=== PATIENT | female | born 1990 | race American Indian/Alaskan Native ===

== ENCOUNTER 2017-10-29 11:20 | Emergency (ER) | payer BC ==
[2017-10-29] MEDS ORDERED: Sodium Chloride 0.9% 1,000 ML IV ONE (12:59)
--- NOTE | 2017-10-29 13:16 | EDM.PDOC ---
ED HPI GENERAL MEDICAL PROBLEM - General Chief Complaint: Neuro Symptoms/Deficits Stated Complaint: syncope, hit head Time Seen by Provider: 10/29/17 11:30 Source of Information: Reports: Patient History Limitations: Reports: No Limitations - History of Present Illness INITIAL COMMENTS - FREE TEXT/NARRATIVE: Jennifer is a 27 year old female who presents to the ED with c/o a syncopal episode. She reports that she was attempting to have a bowel movement while at a gas station in [place] when she "passed out." She reports she fell and believes she hit her head. Does also c/o some right elbow pain. She reports she feels somewhat dizzy now. Denies any headache, recent illness, chest pain, shortness of breath, N/V/D, urinary symptoms. Reports her LMP was 09/25/2017 and that she has irregular cycles. Onset: Today Onset Date: 10/29/17 Onset Time: 10:30 Duration: Resolved Prior to Arrival Associated Symptoms: Reports: Syncope, Weakness. Denies: Confusion, Chest Pain , Cough, cough w sputum, Diaphoresis, Fever/Chills, Headaches, Loss of Appetite , Malaise, Nausea/Vomiting, Rash, Seizure, Shortness of Breath Head Pain Score (Numeric/FACES): 3 Left Tooth/Teeth Pain Score (Numeric/FACES): 5 - Related Data Allergies Allergy/AdvReac Type Severity Reaction Status Date / Time naproxen Allergy Dizziness Verified 10/29/17 11:32 shellfish derived Allergy Anaphylactic Verified 10/29/17 11:32 Shock pine Allergy Difficulty Uncoded 10/29/17 11:32 Breathing Home Meds: Home Meds Albuterol [Ventolin HFA] 1 puff INH Q4H PRN 10/29/17 [History] Cetirizine [ZyrTEC] 10 mg PO DAILY PRN 10/29/17 [History] EPINEPHrine [Epipen] 0.3 mg IM ASDIRECTED PRN 10/29/17 [History] Past Medical History HEENT History: Reports: Impaired Vision Respiratory History: Reports: Asthma Musculoskeletal History: Reports: Arthritis - Past Surgical History Musculoskeletal Surgical History: Reports: Arthroscopic Knee Social & Family History - Tobacco Use Smoking Status *Q: Never Smoker - Caffeine Use Caffeine Use: Reports: None - Recreational Drug Use Recreational Drug Use: No ED ROS GENERAL - Review of Systems Review Of Systems: ROS reveals no pertinent complaints other than HPI. Constitutional: Reports: No Symptoms HEENT: Reports: No Symptoms Respiratory: Reports: No Symptoms Cardiovascular: Reports: Syncope Endocrine: Reports: No Symptoms GI/Abdominal: Reports: No Symptoms : Reports: No Symptoms Musculoskeletal: Reports: No Symptoms Skin: Reports: No Symptoms ED EXAM, NEURO - Physical Exam Exam: See Below Exam Limited By: No Limitations General Appearance: Alert, WD/WN, No Apparent Distress Eye Exam: Bilateral Eye: EOMI, Normal Fundi, Normal Inspection, PERRL Ears: Normal External Exam, Normal Canal, Hearing Grossly Normal, Normal TMs Nose: Normal Inspection, Normal Mucosa, No Blood Throat/Mouth: Normal Inspection, Normal Lips, Normal Teeth, Normal Gums, Normal Oropharynx, Normal Voice, No Airway Compromise Head Exam: Atraumatic, Normocephalic Neck: Normal Inspection, Supple, Non-Tender, Full Range of Motion Respiratory/Chest: No Respiratory Distress, Lungs Clear, Normal Breath Sounds, No Accessory Muscle Use, Chest Non-Tender Cardiovascular: Normal Peripheral Pulses, Regular Rate, Rhythm, No Edema, No Gallop, No JVD, No Murmur, No Rub GI/Abdominal: Normal Bowel Sounds, Soft, Non-Tender, No Organomegaly, No Distention, No Abnormal Bruit, No Mass Neurological: Alert, Normal Mood/Affect, Normal Dorsiflexion, CN II-XII Intact, Normal Plantar Flexion, Normal Gait, Normal Reflexes, No Motor/Sensory Deficits , Oriented x 3 Back Exam: Normal Inspection, Full Range of Motion, NT Extremities: Normal Inspection, Normal Range of Motion, Non-Tender, No Pedal Edema, Normal Capillary Refill Psychiatric: Normal Affect, Normal Mood Skin Exam: Warm, Dry, Intact, Normal Color, No Rash Course - Vital Signs Last Recorded V/S: Last Vital Signs Temp 96.9 F 10/29/17 11:27 Pulse 88 10/29/17 11:27 Resp 20 10/29/17 11:27 BP 126/78 10/29/17 11:27 Pulse Ox 99 10/29/17 11:27 Orthostatic Blood Pressure [ 151/83 Standing] Orthostatic Blood Pressure [ 133/86 Sitting] Orthostatic Blood Pressure [ 129/78 Supine] - Orders/Labs/Meds Orders: Active Orders 24 hr Category Date Time Status Orthostatic Vital Signs [RC] ASDIRECTED Care 10/29/17 12:01 Active Labs: Laboratory Tests 10/29/17 10/29/17 10/29/17 Range/Units 12:10 12:10 12:20 WBC 7.2 (5.0-10.0) 10^3/uL RBC 4.61 (4.00-5.50) 10^6/uL Hgb 13.5 (12.0-16.0) g/dL Hct 39.5 (37.0-47.0) % MCV 85.7 (82.0-94.0) fL MCH 29.3 (27.0-32.0) pg MCHC 34.2 (33.0-38.0) g/dL RDW Coeff of Jennifer 13.4 (11.0-15.0) % Plt Count 287 (150-400) 10^3/uL Neut % (Auto) 74.3 (35-85) % Lymph % (Auto) 11.9 (10-55) % Loup % (Auto) 11.2 (0-16) % Eos % (Auto) 2.5 (0-5) % Baso % (Auto) 0.1 (0-3) % Neut # (Auto) 5.32 (1.80-7.00) 10^3/uL Lymph # (Auto) 0.85 L (1.00-4.80) 10^3/uL Loup # (Auto) 0.80 (0.00-0.80) 10^3/uL Eos # (Auto) 0.18 (0.00-0.45) 10^3/uL Baso # (Auto) 0.01 10^3/uL Sodium 137 (136-145) mEq/L Potassium 4.0 (3.5-5.0) mEq/L Chloride 102 (98-106) mEq/L Carbon Dioxide 27 (21-32) mmol/L BUN 14 (7-18) mg/dL Creatinine 1.1 H (0.6-1.0) mg/dL Est Cr Clr Drug Dosing 71.92 mL/min Estimated GFR (MDRD) 60 (>=60) mL/min Glucose 89 (75-99) mg/dL Calcium 9.2 (8.4-10.1) mg/dL Total Bilirubin 0.6 (0.0-1.0) mg/dL AST 27 (15-37) U/L ALT 35 (12-78) U/L Alkaline Phosphatase 74 (46-116) U/L C-Reactive Protein 1.3 H (0.2-0.8) mg/dL Total Protein 8.0 (6.4-8.2) g/dL Albumin 4.1 (3.4-5.0) g/dL Urine Color Yellow (YELLOW) Urine Appearance Slightly cloudy (CLEAR) Urine pH 5.5 (4.5-8.0) Ur Specific Callaway >= 1.030 H (1.003-1.020) Urine Protein 30 H (NEGATIVE) mg/dL Urine Glucose (UA) Negative (NEGATIVE) mg/dL Urine Ketones Trace H (NEGATIVE) mg/dL Urine Occult Blood Moderate H (NEGATIVE) Urine Nitrite Negative (NEGATIVE) Urine Bilirubin Negative (NEGATIVE) Urine Urobilinogen 1.0 (0.2-1.0) EU/dL Ur Leukocyte Esterase Negative (NEGATIVE) Urine RBC 0-5 (0-5) /HPF Urine WBC Not seen (0-5) /HPF Ur Epithelial Cells Moderate H (NOT SEEN) /HPF Urine Bacteria Few H (NOT SEEN) /HPF Urine HCG, Qual 10/29/17 Range/Units 12:20 WBC (5.0-10.0) 10^3/uL RBC (4.00-5.50) 10^6/uL Hgb (12.0-16.0) g/dL Hct (37.0-47.0) % MCV (82.0-94.0) fL MCH (27.0-32.0) pg MCHC (33.0-38.0) g/dL RDW Coeff of Jennifer (11.0-15.0) % Plt Count (150-400) 10^3/uL Neut % (Auto) (35-85) % Lymph % (Auto) (10-55) % Loup % (Auto) (0-16) % Eos % (Auto) (0-5) % Baso % (Auto) (0-3) % Neut # (Auto) (1.80-7.00) 10^3/uL Lymph # (Auto) (1.00-4.80) 10^3/uL Loup # (Auto) (0.00-0.80) 10^3/uL Eos # (Auto) (0.00-0.45) 10^3/uL Baso # (Auto) 10^3/uL Sodium (136-145) mEq/L Potassium (3.5-5.0) mEq/L Chloride (98-106) mEq/L Carbon Dioxide (21-32) mmol/L BUN (7-18) mg/dL Creatinine (0.6-1.0) mg/dL Est Cr Clr Drug Dosing mL/min Estimated GFR (MDRD) (>=60) mL/min Glucose (75-99) mg/dL Calcium (8.4-10.1) mg/dL Total Bilirubin (0.0-1.0) mg/dL AST (15-37) U/L ALT (12-78) U/L Alkaline Phosphatase (46-116) U/L C-Reactive Protein (0.2-0.8) mg/dL Total Protein (6.4-8.2) g/dL Albumin (3.4-5.0) g/dL Urine Color (YELLOW) Urine Appearance (CLEAR) Urine pH (4.5-8.0) Ur Specific Callaway (1.003-1.020) Urine Protein (NEGATIVE) mg/dL Urine Glucose (UA) (NEGATIVE) mg/dL Urine Ketones (NEGATIVE) mg/dL Urine Occult Blood (NEGATIVE) Urine Nitrite (NEGATIVE) Urine Bilirubin (NEGATIVE) Urine Urobilinogen (0.2-1.0) EU/dL Ur Leukocyte Esterase (NEGATIVE) Urine RBC (0-5) /HPF Urine WBC (0-5) /HPF Ur Epithelial Cells (NOT SEEN) /HPF Urine Bacteria (NOT SEEN) /HPF Urine HCG, Qual Negative Meds: Medications Discontinued Medications Generic Name Dose Route Start Last Admin Trade Name Freq PRN Reason Stop Dose Admin Sodium Chloride 1,000 mls @ 999 mls/hr 10/29/17 12:59 10/29/17 13:20 Normal Saline IV 10/29/17 13:59 999 mls/hr .BOLUS ONE Administration - Re-Assessments/Exams Free Text/Narrative Re-Assessment/Exam: Discussed labs with patient and significant other. Labs all stable. Does appear to be slightly dehydrated. 1 L NS administered. Discussed that I do not feel any imaging is warranted given normal exam. Patient is concerned with concussion. Discussed that CT head is not necessary. Will discharge home after fluids and recommend post concussive protocol. Departure - Departure Time of Disposition: 13:13 Disposition: Home, Self-Care 01 Condition: Good Clinical Impression: Vasovagal syncope Head injury due to trauma Qualifiers: Encounter type: initial encounter Qualified Code(s): S09.90XA - Unspecified injury of head, initial encounter - Discharge Information Instructions: Post-Concussion Syndrome, [id number], Vasovagal Syncope, Adult Referrals: PCP,None [Primary Care Provider] - Forms: ED Department Discharge Additional Instructions: Push fluids Post concussion recommendations- rest in cool dark environment, low stimuli, avoid excessive phone use Tylenol as needed for headache Follow up with PCP. Recommend establishing care with a primary medical provider - My Orders Last 24 Hours: My Active Orders 10/29/17 12:01 Orthostatic Vital Signs [RC] ASDIRECTED - Assessment/Plan Last 24 Hours: My Active Orders 10/29/17 12:01 Orthostatic Vital Signs [RC] ASDIRECTED
== END 2017-10-29 14:25 | disposition home or self-care (01) ==
LOC: CC.ED 11:20
DX: R55 Syncope and collapse (principal); S09.90XA Unspecified injury of head, initial encounter; Z88.6 Allergy status to analgesic agent; Z91.013 Allergy to seafood; Z79.899 Other long term (current) drug therapy; W01.10XA Fall on same level from slipping, tripping and stumbling with subsequent striking against unspecified object, initial encounter
CPT/HCPCS: 36415; 80053; 81001; 81025; 85025; 86140; 96360; 99284; J7030